=== PATIENT | female | born 1955 | race Caucasian/White ===

== ENCOUNTER → 2018-06-12 | Outpatient (CLI) | payer OTHER ==
[~2018-06-12] MED LIST: ACET-1600 PO; ALBU8.5H8 INH; ATOR20TA37 PO; AZEL137S4 NAS; CYCL1DRO EACHEYE; FEXO180T72 PO; FLUT1DIS3 INH; FLUT9.9S NS; LOSA50TA14 PO; METF500T17 PO; MONT10TA6 PO; MULT-123 PO; NAPR220C2 PO; OMEG1CAP23 PO; PROP10DR4 EACHEYE; TRAM50TA2 PO; iron PO
[2018-06-12 15:55] LABS: BASOPHILS # (AUTO) 0.03 x10^3/uL (0-0.1); BASOPHILS % (AUTO) 0 % (0-1); EOSINOPHILS # (AUTO) 0.11 x10^3/uL (0-0.4); EOSINOPHILS % (AUTO) 2 % (1-7); LYMPHOCYTES # (AUTO) 2.29 x10^3/uL (1-3.4); LYMPHOCYTES % (AUTO) 29 % (22-44); MD NO; MEAN CORPUSCULAR HEMOGLOBIN 29.6 pg (27.0-34.8); MEAN CORPUSCULAR HGB CONC 32.6 g/dL (32.4-35.8); MEAN CORPUSCULAR VOLUME 90.8 fL (80-100); MEAN PLATELET VOLUME 6.6 fL (7.4-10.4); MONOCYTES # (AUTO) 0.61 x10^3/uL (0.2-0.8); MONOCYTES % (AUTO) 8 % (2-9); NEUTROPHILS # (AUTO) 4.79 x10^3/uL (1.8-6.8); NEUTROPHILS % (AUTO) 61 % (42-75); PLATELET COUNT 358 x10^3/uL (130-400); RED BLOOD COUNT 4.11 x10^6/uL (3.82-5.3); RED CELL DISTRIBUTION WIDTH 13.8 % (9.6-15.2)
[2018-06-12 16:06] LABS: INTERNATIONAL NORMALIZED RATIO 0.95 (0.93-1.1)
[2018-06-12 16:08] LABS: ALANINE AMINOTRANSFERASE 36 U/L (12-78); ALBUMIN 4.3 g/dL (3.4-5.0); ANION GAP 7 mmol/L (5-15); CALCIUM 9.2 mg/dL (8.5-10.1); CHLORIDE 111 mmol/L (98-107); CREATININE 0.82 mg/dL (0.55-1.02)
[2018-06-12 16:10] LABS: ALKALINE PHOSPHATASE 62 U/L (45-117); BILIRUBIN,TOTAL 0.4 mg/dL (0.2-1.0); TOTAL PROTEIN 7.3 g/dL (6.4-8.2)
[2018-06-12 16:12] LABS: HEMOGLOBIN A1C 5.9 % (4.2-6.3)
== END | disposition home or self-care (01) ==
LOC: STAR 15:21
PROVIDERS: ATTEND Orthopaedic Surgery
DX: M17.11 Unilateral primary osteoarthritis, right knee (principal)
CPT/HCPCS: 36415; 80053; 83036; 85025; 85610; 85730; 87081; 93005

== ENCOUNTER 2018-06-20 05:54 | Observation (INO) | payer OTHER ==
[~2018-06-20] VITALS: Ht 154.9 cm; Wt 74.8 kg
[2018-06-20] MEDS: NS + 20MEQ KCL 1,000 ML IV SCH ×2 (06:15→16:28)
[2018-06-20] MEDS ORDERED: SENNA/DOCUSATE TABLET PO PRN (06:30)
[2018-06-20] MEDS ORDERED: ACETAMINOPHEN 650 MG/20.3 ML UDC PO PRN (06:30)
[2018-06-20] MEDS ORDERED: ONDANSETRON 2MG/ML, 2ML IV PRN ×2 (06:30→09:30)
[2018-06-20] MEDS: CEFAZOLIN PMX 2GM/50ML 50 ML IVPB SCH ×2 (06:30→17:06)
[2018-06-20] MEDS ORDERED: HYDROmorphone 1 MG/ML, 1ML INJ IV PRN (06:30)
[2018-06-20] MEDS ORDERED: ALBUTEROL SULFATE INH PRN (06:30)
[2018-06-20] MEDS ORDERED: SCOPOLAMINE PATCH, 1.5MG PATCH.TD72 TD ONE (06:30)
[2018-06-20] MEDS ORDERED: ZOLPIDEM 5MG TABLET PO PRN (06:30)
[2018-06-20] MEDS ORDERED: ONDANSETRON 4 MG TABLET PO PRN (06:30)
[2018-06-20] MEDS ORDERED: MAGNESIUM HYDROXIDE 8%, 30ML UDC PO PRN (06:30)
[2018-06-20] MEDS ORDERED: DIPHENHYDRAMINE 25 MG CAPSULE PO PRN (06:30)
[2018-06-20] MEDS ORDERED: BISACODYL 10 MG SUPP PR PRN (06:30)
[2018-06-20] MEDS ORDERED: LACTATED RINGERS 1,000 ML IV SCH (06:45)
[2018-06-20] MEDS ORDERED: ROPIvacaine/PF 0.5%, 20 ML ONE (06:47)
[2018-06-20] MEDS ORDERED: TRANEXAMIC ACID 100 MG/ML, 10ML ONE ×2 (06:47)
[2018-06-20] MEDS ORDERED: KETOROLAC 60 MG/2 ML ONE (06:47)
[2018-06-20] MEDS ORDERED: VANCOMYCIN 1,000 MG ONE (06:48)
[2018-06-20] MEDS ORDERED: SODIUM CHLORIDE 0.9% 50 ML ONE (06:49)
[2018-06-20] MEDS ORDERED: EPINEPHRINE 1 MG/ML, 1ML ONE (06:49)
[2018-06-20] MEDS ORDERED: GABAPENTIN 300 MG CAPSULE PO ONE (07:00)
[2018-06-20] MEDS ORDERED: ACETAMINOPHEN 500 MG TABLET PO ONE (07:00)
[2018-06-20] MEDS: INSULIN LISPRO 100 UNITS/ML, PEN SQ-INSULIN SCH ×4 (07:00→20:20)
[2018-06-20] MEDS ORDERED: FENTANYL PF 250 MCG/5ML ONE (07:42)
[2018-06-20] MEDS ORDERED: PROPOFOL 50 ML ONE ×2 (07:42→09:10)
[2018-06-20] MEDS ORDERED: MIDAZOLAM 1 MG/ML, 2ML ONE (07:42)
[2018-06-20] MEDS: CYCLOSPORINE EACHEYE SCH ×2 (09:00→20:20)
[2018-06-20] MEDS: metFORMIN 500 MG TABLET PO SCH ×2 (09:00→20:18)
[2018-06-20] MEDS: LOSARTAN 50MG TABLET PO SCH (09:00)
[2018-06-20] MEDS: DOCUSATE 100 MG CAPSULE PO SCH ×2 (09:00→20:19)
[2018-06-20] MEDS: ALBUTEROL SULFATE 2.5 MG/3 ML NPPB SCH ×2 (09:00→15:00)
[2018-06-20] MEDS ORDERED: PROMETHAZINE 25 MG/ML, 1ML IV PRN (09:30)
[2018-06-20] MEDS ORDERED: DIAZEPAM 5 MG/ML, 2ML IVPush PRN (09:30)
[2018-06-20] MEDS ORDERED: ONDANSETRON ODT 8 MG PO PRN (09:30)
[2018-06-20] MEDS ORDERED: EPHEDRINE 50 MG/ML, 1ML IM PRN (09:30)
[2018-06-20] MEDS ORDERED: EPHEDRINE 50 MG/ML, 1ML IVPush PRN (09:30)
[2018-06-20] MEDS ORDERED: HYDROcodone/APAP 7.5-325MG/15ML UDC PO PRN (09:30)
[2018-06-20] MEDS ORDERED: MIDAZOLAM 1 MG/ML, 2ML IV PRN (09:30)
[2018-06-20] MEDS ORDERED: MEPERIDINE/PF 25MG/0.5ML IVPush PRN (09:30)
[2018-06-20] MEDS ORDERED: DIPHENHYDRAMINE 50 MG/ML, 1ML IVPush PRN (09:30)
[2018-06-20] MEDS ORDERED: METOPROLOL 1 MG/ML, 5ML IV PRN (09:30)
[2018-06-20] MEDS ORDERED: hydrALAzine 20 MG/ML, 1ML IV PRN (09:30)
[2018-06-20] MEDS ORDERED: FENTANYL PF 100 MCG/2ML ONE ×3 (09:43→10:36)
[2018-06-20] MEDS: FENTANYL PF 100 MCG/2ML IV PRN ×4 (10:10→10:55)
[2018-06-20] MEDS ORDERED: morphine SULFATE 10 MG/ML, 1ML ONE ×2 (10:13→10:33)
[2018-06-20] MEDS: MORPHINE SULFATE 4 MG/ML, 1ML IVPush PRN ×4 (10:15→10:45)
[2018-06-20] MEDS ORDERED: HYDROcodone/APAP 7.5-325MG/15ML UDC ONE ×2 (11:03)
[2018-06-20 14:00] VITALS: BP 124/67
[2018-06-20] MEDS ORDERED: DEXAMETHASONE 4 MG/ML, 1ML ONE (14:53)
[2018-06-20] MEDS ORDERED: ONDANSETRON 2MG/ML, 2ML ONE (14:53)
[2018-06-20] MEDS ORDERED: CEFAZOLIN 1,000 MG ONE (14:53)
[2018-06-20] MEDS: ASPIRIN 81 MG TABLET EC PO SCH (17:06)
[2018-06-20 19:11] VITALS: BP 116/50
[2018-06-20] MEDS ORDERED: TEMPLATE NON-FORMULARY MED. (Azelastine Hcl Nasal 1 SPRAY) NAS SCH (21:00)
[2018-06-20] MEDS ORDERED: MONTELUKAST 10 MG TABLET PO SCH (21:00)
[2018-06-20] MEDS ORDERED: BUDESONIDE 0.5 MG/2 ML INHA NPPB SCH (21:00)
[2018-06-20] MEDS ORDERED: ATORVASTATIN 20 MG TABLET PO SCH (21:00)
[2018-06-20] MEDS ORDERED: FLUTICASONE NASAL SPRAY 16GM NAS SCH (21:00)
[2018-06-21 01:07] VITALS: BP 127/64
[2018-06-21] MEDS: HYDROcodone/APAP 5/325 TABLET PO PRN ×3 (01:30→11:13)
[2018-06-21] MEDS: ALBUTEROL SULFATE 2.5 MG/3 ML NPPB SCH ×2 (01:30→03:00)
[2018-06-21] MEDS ORDERED: CEFAZOLIN 2,000 MG in SODIUM CHLORIDE 0.9% 50 ML IV ONE (05:00)
[2018-06-21] MEDS ORDERED: DEXAMETHASONE 4 MG/ML, 1ML IVPush SCH (06:00)
[2018-06-21] MEDS: ASPIRIN 81 MG TABLET EC PO SCH (06:19)
[2018-06-21] MEDS: INSULIN LISPRO 100 UNITS/ML, PEN SQ-INSULIN SCH ×2 (06:50→11:00)
[2018-06-21] MEDS: NS + 20MEQ KCL 1,000 ML IV SCH (07:07)
[2018-06-21 08:02] VITALS: BP 121/74
[2018-06-21] MEDS: CYCLOSPORINE EACHEYE SCH (09:00)
[2018-06-21] MEDS ORDERED: HYDR-3240 PO (09:12)
[2018-06-21] MEDS ORDERED: ONDA4TAB13 PO (09:13)
[2018-06-21] MEDS ORDERED: MELO7.5T31 PO (09:13)
[2018-06-21] MEDS ORDERED: TRAM50TA2 PO (09:15)
[2018-06-21] MEDS: LOSARTAN 50MG TABLET PO SCH (10:02)
[2018-06-21] MEDS: metFORMIN 500 MG TABLET PO SCH (10:02)
[2018-06-21] MEDS: DOCUSATE 100 MG CAPSULE PO SCH (10:03)
== END 2018-06-21 12:16 | disposition home or self-care (01) ==
LOC: OUT 05:54 → 4NOR 12:25 → OUT 21:32 → DCLOUNGE 06-21 11:56
PROVIDERS: ADMIT Orthopaedic Surgery; ATTEND Orthopaedic Surgery
DX: M17.11 Unilateral primary osteoarthritis, right knee (principal); J45.909 Unspecified asthma, uncomplicated; E11.9 Type 2 diabetes mellitus without complications; Z87.891 Personal history of nicotine dependence; Z79.899 Other long term (current) drug therapy; Z88.0 Allergy status to penicillin; Z88.5 Allergy status to narcotic agent; Z88.8 Allergy status to other drugs, medicaments and biological substances
CPT/HCPCS: 27447; 36415; 82962; 85014; 85018; 96365; 96366; 96375; 97150; 97161; 97166; C1713; C1776; G0378; J0171; J0690; J1100; J1885; J2250; J2405; J2704; J2795; J3010; J3480; J7120; J3370

== ENCOUNTER 2018-07-25 10:32 | Outpatient (CLI) | payer OTHER ==
[~2018-07-25 10:32] MED LIST changes: +HYDR-3240 PO; +MELO7.5T31 PO; +ONDA4TAB13 PO
[2018-07-25] MEDS ORDERED: DOCU-131 PO (11:20)
[2018-07-25] MEDS ORDERED: TRAM50TA2 PO (11:20)
== END 2018-07-25 23:59 | disposition home or self-care (01) ==
LOC: STAR 10:32
PROVIDERS: ATTEND Orthopaedic Surgery
DX: Z02.9 Encounter for administrative examinations, unspecified (principal)

== ENCOUNTER 2018-08-08 05:44 | Inpatient (IN) | payer OTHER ==
[~2018-08-08] VITALS: Ht 152.4 cm; Wt 69.0 kg
[~2018-08-08 05:44] MED LIST changes: +DOCU-131 PO
[2018-08-08] MEDS ORDERED: ONDANSETRON 2MG/ML, 2ML IV PRN ×2 (06:00→09:00)
[2018-08-08] MEDS ORDERED: OXYcodone IR 5MG TABLET PO PRN (06:00)
[2018-08-08] MEDS ORDERED: TEMPLATE NON-FORMULARY MED. (Albuterol Sulfate (Proair Hfa) 2 PUFFS) INH PRN (06:00)
[2018-08-08] MEDS ORDERED: HYDROmorphone 1 MG/ML, 1ML INJ IV PRN (06:00)
[2018-08-08] MEDS ORDERED: ONDANSETRON 4 MG TABLET PO PRN (06:00)
[2018-08-08] MEDS ORDERED: SENNA/DOCUSATE TABLET PO PRN (06:00)
[2018-08-08] MEDS ORDERED: BISACODYL 10 MG SUPP PR PRN (06:00)
[2018-08-08] MEDS ORDERED: ACETAMINOPHEN 650 MG/20.3 ML UDC PO PRN (06:00)
[2018-08-08] MEDS ORDERED: SCOPOLAMINE PATCH, 1.5MG PATCH.TD72 TD ONE (06:00)
[2018-08-08] MEDS ORDERED: DEXAMETHASONE 4 MG/ML, 1ML IVPush SCH (06:00)
[2018-08-08] MEDS: ASPIRIN 81 MG TABLET EC PO SCH ×2 (06:00→17:07)
[2018-08-08] MEDS ORDERED: ZOLPIDEM 5MG TABLET PO PRN (06:00)
[2018-08-08] MEDS ORDERED: MAGNESIUM HYDROXIDE 8%, 30ML UDC PO PRN (06:00)
[2018-08-08] MEDS ORDERED: DIPHENHYDRAMINE 50 MG CAPSULE PO PRN (06:00)
[2018-08-08] MEDS ORDERED: VANCOMYCIN PER PHARMACY MC STA (06:09)
[2018-08-08] MEDS ORDERED: LACTATED RINGERS 1,000 ML IV SCH (06:10)
[2018-08-08] MEDS ORDERED: KETOROLAC 60 MG/2 ML ONE (06:11)
[2018-08-08] MEDS ORDERED: ROPIvacaine/PF 0.5%, 30 ML ONE (06:11)
[2018-08-08] MEDS ORDERED: TRANEXAMIC ACID 100 MG/ML, 10ML ONE ×2 (06:11)
[2018-08-08] MEDS ORDERED: VANCOMYCIN 1,000 MG ONE (06:12)
[2018-08-08] MEDS ORDERED: EPINEPHRINE 1 MG/ML, 1ML ONE (06:12)
[2018-08-08] MEDS ORDERED: SODIUM CHLORIDE 0.9% 50 ML ONE (06:12)
[2018-08-08] MEDS ORDERED: MIDAZOLAM 1 MG/ML, 2ML ONE (06:27)
[2018-08-08] MEDS ORDERED: FENTANYL PF 250 MCG/5ML ONE (06:28)
[2018-08-08] MEDS ORDERED: ACETAMINOPHEN 500 MG TABLET PO ONE (06:30)
[2018-08-08] MEDS ORDERED: GABAPENTIN 300 MG CAPSULE PO ONE (06:30)
[2018-08-08] MEDS: INSULIN LISPRO 100 UNITS/ML, PEN SQ-INSULIN SCH ×4 (07:00→21:00)
[2018-08-08] MEDS ORDERED: BUPIVACAINE/PF 0.25% ONE (07:37)
[2018-08-08] MEDS ORDERED: CEFAZOLIN 1,000 MG ONE (07:38)
[2018-08-08] MEDS ORDERED: LIDOCAINE-MPF 2% ,5ML ONE (07:38)
[2018-08-08] MEDS ORDERED: PROPOFOL 10 MG/ML, 20ML ONE (07:38)
[2018-08-08] MEDS ORDERED: DEXAMETHASONE 4 MG/ML, 1ML ONE (07:38)
[2018-08-08] MEDS ORDERED: ONDANSETRON 2MG/ML, 2ML ONE (07:38)
[2018-08-08] MEDS ORDERED: METOPROLOL 1 MG/ML, 5ML IV PRN (09:00)
[2018-08-08] MEDS ORDERED: HYDROcodone/APAP 7.5-325MG/15ML UDC PO PRN (09:00)
[2018-08-08] MEDS ORDERED: MEPERIDINE/PF 25MG/0.5ML IVPush PRN (09:00)
[2018-08-08] MEDS ORDERED: ALBUTEROL/IPRATROPIUM 2.5MG/0.5MG, 3 ML NPPB PRN (09:00)
[2018-08-08] MEDS ORDERED: MORPHINE SULFATE 4 MG/ML, 1ML IVPush PRN (09:00)
[2018-08-08] MEDS ORDERED: hydrALAzine 20 MG/ML, 1ML IV PRN (09:00)
[2018-08-08] MEDS ORDERED: MIDAZOLAM 1 MG/ML, 2ML IV PRN (09:00)
[2018-08-08] MEDS ORDERED: PROMETHAZINE 25 MG/ML, 1ML IV PRN (09:00)
[2018-08-08] MEDS ORDERED: FENTANYL PF 100 MCG/2ML ONE (09:01)
[2018-08-08] MEDS: FENTANYL PF 100 MCG/2ML IV PRN ×2 (09:09→09:29)
[2018-08-08 11:15] VITALS: BP 120/65
[2018-08-08] MEDS: metFORMIN 500 MG TABLET PO SCH ×2 (11:16→21:07)
[2018-08-08] MEDS: DOCUSATE 100 MG CAPSULE PO SCH ×2 (11:17→21:07)
[2018-08-08] MEDS: NS + 20MEQ KCL 1,000 ML IV SCH ×2 (11:17→20:00)
[2018-08-08] MEDS: LOSARTAN 50MG TABLET PO SCH (11:17)
[2018-08-08 14:40] VITALS: BP 110/63
[2018-08-08] MEDS: CEFAZOLIN PMX 2GM/50ML 50 ML IVPB SCH ×2 (16:05→23:27)
[2018-08-08 18:31] VITALS: BP 100/66
[2018-08-08] MEDS ORDERED: LORATADINE 10 MG TABLET PO SCH (21:00)
[2018-08-08] MEDS ORDERED: ATORVASTATIN 20 MG TABLET PO SCH (21:00)
[2018-08-08] MEDS ORDERED: MONTELUKAST 10 MG TABLET PO SCH (21:00)
[2018-08-08] MEDS: ALBUTEROL SULFATE 2.5 MG/3 ML HHN SCH (22:10)
[2018-08-09] VITALS: BP 121/90
[2018-08-09 04:00] VITALS: BP 119/68
[2018-08-09] MEDS: HYDROcodone/APAP 5/325 TABLET PO PRN ×4 (04:12→12:30)
[2018-08-09] MEDS ORDERED: DEXAMETHASONE 4 MG/ML, 1ML IVPush ONE (06:00)
[2018-08-09] MEDS: ASPIRIN 81 MG TABLET EC PO SCH (06:10)
[2018-08-09] MEDS: INSULIN LISPRO 100 UNITS/ML, PEN SQ-INSULIN SCH ×2 (06:11→11:00)
[2018-08-09] MEDS: ALBUTEROL SULFATE 2.5 MG/3 ML HHN SCH (06:40)
[2018-08-09 07:51] VITALS: BP 122/53
[2018-08-09] MEDS: NS + 20MEQ KCL 1,000 ML IV SCH (08:30)
[2018-08-09] MEDS: LOSARTAN 50MG TABLET PO SCH (08:39)
[2018-08-09] MEDS: DOCUSATE 100 MG CAPSULE PO SCH (08:39)
[2018-08-09] MEDS: metFORMIN 500 MG TABLET PO SCH (08:40)
[2018-08-09] MEDS ORDERED: BUDESONIDE 0.5 MG/2 ML INHA HHN SCH (09:00)
[2018-08-09] MEDS ORDERED: HYDR-3240 PO (09:33)
[2018-08-09] MEDS ORDERED: MELO7.5T31 PO (09:34)
[2018-08-09] MEDS ORDERED: TRAM50TA2 PO (09:34)
== END 2018-08-09 13:35 | disposition home or self-care (01) | DRG 468 ==
LOC: ORIP 05:44 → 4NOR 10:08 → DCLOUNGE 08-09 13:14
PROVIDERS: ADMIT Orthopaedic Surgery; ATTEND Orthopaedic Surgery
PROC: 0SPD0JZ Removal of Synthetic Substitute from Left Knee Joint, Open Approach (ICD-10-PCS; 2018-08-08)
PROC: 0SRD0J9 Replacement of Left Knee Joint with Synthetic Substitute, Cemented, Open Approach (ICD-10-PCS; 2018-08-08)
PROC: 3E0T3BZ Introduction of Anesthetic Agent into Peripheral Nerves and Plexi, Percutaneous Approach (ICD-10-PCS; principal; 2018-08-08 07:00)
DX: T84.033A Mechanical loosening of internal left knee prosthetic joint, initial encounter (principal); J45.909 Unspecified asthma, uncomplicated; E11.9 Type 2 diabetes mellitus without complications; Y83.8 Other surgical procedures as the cause of abnormal reaction of the patient, or of later complication, without mention of misadventure at the time of the procedure; Y92.89 Other specified places as the place of occurrence of the external cause; Z88.0 Allergy status to penicillin; Z88.5 Allergy status to narcotic agent; Z87.891 Personal history of nicotine dependence
CPT/HCPCS: 36415; J3490; J7613; 82962; 85014; 85018; C1713; G0378; J0171; J0690; J1100; J1885; J2250; J2405; J2704; J2795; J3010; J3370; J3480; C1776; J7120